=== PATIENT | female | born 1945 | race Caucasian/White ===

== ENCOUNTER 2016-10-17 23:39 | Inpatient (IN) | payer OTHER, MEDICARE ==
[~2016-10-17] VITALS: Ht 177.8 cm; Wt 113.0 kg
[~2016-10-17 23:39] MED LIST: ADULT LOW DOSE81 M1 PO; ALDOMET500 MG PO; ASPIRIN; Albuterol 0.5% Inhal IH; Apresoline PO; CARVEDILOL12.5 MG PO; CLEOCIN300 MG PO; CLOBETASOL PROP60 GM TP; CLOTRIMAZOLE10 MG; COREG12.5 M1 PO; COZAAR100 MG PO; COZAAR50 MG PO; CYMBALTA; CYMBALTA20 MG PO; CYMBALTA60 MG PO; DELTASONE20 M1 PO; DUONEB 2.5-0.5 M3 ML AEROSOL; ERGOCALCIF50000 UNIT PO; FELODIPINE ER10 MG PO; FENOFIBRATE54 M1 PO; FERROUS SULFAT325 MG PO; FISH OIL CONC1 EACH PO; FLAGYL500 MG PO; FLONASE16 G1 BOTH NARES; FOLIC ACID0.4 MG PO; FOLIC ACID1 MG PO; FUROSEMIDE20 MG PO; FUROSEMIDE40 MG PO; GLUCOPHAGE XR1000 MG PO; HUMALOG MI100 UNIT/1 SC; HUMALOG MI100 UNIT/3 SC; HUMALOG MI100 UNIT/3 SQ; HUMALOG MI100 UNIT/6 SQ; HUMALOG100 UNIT/2 SC; HUMALOG100 UNITS/ SQ; HUMULIN N100 UNIT/1; HUMULIN NP100 UNIT/1 SC; HYDROCHLOROTHIA25 MG PO; HYDROCORTISONE BUTYRATE 0.1% TP; HYDROXYCHLOROQ200 MG PO; IBUPROFEN200 M1 PO; IBUPROFEN800 MG PO; INDAPAMIDE; INDAPAMIDE2.5 MG PO; IPRATROPIU0.2 MG/1 M IH; K-DUR20 MEQ PO; KEPPRA XR500 MG PO; KEPPRA1000 MG PO; KEPPRA500 MG PO; KLOR-CON M2020 MEQ PO; LANTUS 3 M100 UNITS1 SC; LASIX20 MG PO; LEVAQUIN; LEVAQUIN500 MG PO; LEVAQUIN750 MG PO; LEVEMIR FL100 UNITS/ SC; LEVEMIR100 UNIT/2 SC; LEVEMIR100 UNIT/2 SQ; LIORESAL10 MG PO; LIPITOR; LIPITOR20 MG PO; LIPITOR40 MG PO; LO-DOSE ASPIRIN81 M1 PO; LOFIBRA54 MG PO; LOSARTAN POTAS100 MG PO; LOZOL2.5 MG PO; LYRICA; LYRICA100 MG PO; LYRICA200 MG PO; Levaquin PO; Levemir Flexpen SC; MACROBID100 MG PO; MACRODANTIN100 MG PO; MAGNESIUM250 MG PO; METFORMIN; METHADONE; METHOTREXATE; METHYLDOPA500 MG PO; METOCLOPRAMIDE H5 MG PO; METOCLOPRAMIDE PO; METRONIDAZOLE500 MG PO; MICRO-K,K-DUR,10 ME1 PO; MILK THISTLE500 MG PO; MONDOXYNE NL100 MG PO; MONTELUKAST SOD10 MG PO; MOTRIN800 MG PO; MUCINEX1200 MG PO; MUCINEX600 MG PO; MULTIVITAMIN1 EAC1 PO; Magnesium PO; Mycostatin TP; NEXIUM; NEXIUM40 MG PO; NITROFURANTOIN100 M3 PO; NITROFURANTOIN100 MG PO; NOVOLOG PE100 UNITS/ SC; NYAMYC60 GM TP; NovoLOG Pen 3 ml SC; OMEPRAZOLE40 M1 PO; ONDANSETRON HCL8 MG PO; OXYCONTIN20 MG PO; Omega III EPA + DHA PO; PLAVIX75 MG PO; PLENDIL10 MG PO; POTASSIUM CHLO10 ME3 PO; POTASSIUM CHLO20 MEQ PO; PREDNISONE10 MG PO; PREDNISONE20 MG PO; PRILOSEC40 MG PO; PROAIR; PROAIR HFA8.5 GM IH; PROMETHAZINE HC25 M1 PO; Potassium Chloride PO; Proventil,Ventolin H IH; SILVADENE,SSD,T20 GM TP; SILVADENE20 GM TP; SINGULAIR10 MG PO; SPIRIVA RESPIMAT4 G1 IH; SPIRIVA RESPIMAT4 GM IH; SPIRIVA1 INHALATI IH; ST. JOSEPH ASPI81 MG PO; SYMBICORT60 INHALAT IH; Spiriva IH; Symbicort 160-4.5 mc IH; TIGAN300 M1 PO; TRAMADOL HCL50 MG PO; ULTRAM50 MG PO; VENTOLIN HFA18 GM IH; VITAMIN D2000 INTUN PO; ZANTAC150 MG PO; ZOVIRAX800 M1 PO; ZYRTEC10 M2 PO; ZYRTEC10 M3 PO; ZyrTEC PO; Zyvox PO; [UNRECOGNIZED DRUG - OTHER]; [UNRECOGNIZED DRUG - OTHER]; predniSONE PO
[2016-10-18] VITALS (9 sets, daily range): BP systolic 130–145; BP diastolic 49–87
[2016-10-18 00:06] LABS: HEMATOCRIT 34.8 % (36.0-46.0); MCH 29.1 PG (29.0-34.0); MCHC 32.2 G/DL (30.0-36.0); MCV 90.4 FL (83-99); MEAN PLAT.VOLUME 9.5 uM^3 (9.5-12.4); PLATELET COUNT 267 K/uL (156-360); RBC DIS.WIDTH-CV 13.5 % (11.8-14.6); RBC DIS.WIDTH-SD 43.6 % (39-53); RED BLOOD COUNT 3.85 M/uL (3.80-5.20); WHITE BLOOD COUNT 19.8 K/uL (4.1-10.2)
[2016-10-18 00:09] LABS: EOSINOPHIL (%) 2.2 % (0-5); EOSINOPHIL COUNT 0.4 K/uL (0-0.3); IMMATURE GRANULOCYTE (%) 0.3 % (0.0-0.7); IMMATURE GRANULOCYTE COUNT 0.5 K/uL; LYMPHOCYTE COUNT 3.1 K/uL (1.0-2.8); MONOCYTE (%) 8.8 % (3-12); MONOCYTE COUNT 1.7 K/uL (0-0.8); NEUTROPHIL (%) 72.9 % (45-76); NEUTROPHIL COUNT 14.5 K/uL (1.8-6.4)
[2016-10-18 00:13] LABS: CHLORIDE 100 mEq/L (99-109); POTASSIUM 4.4 mEq/L (3.7-5.4); SODIUM 140 mEq/L (136-147)
[2016-10-18 00:15] LABS: GLUCOSE 198 mg/dL (70-99)
[2016-10-18 00:16] LABS: ANION GAP 11 MEQ/L (2-14)
[2016-10-18 00:17] LABS: TOTAL BILIRUBIN 0.5 mg/dL (0.0-1.0)
[2016-10-18 00:18] LABS: ALKALINE PHOSPHATASE 66 IU/L (3-129)
[2016-10-18 00:19] LABS: GFR ESTIMATE (CALCULATED) 43 mL/min/
[2016-10-18 00:20] LABS: UREA NITROGEN (BUN) 19 mg/dL (9-23)
[2016-10-18 00:26] LABS: TROP-I INTERPRETATION NEGATIVE; TROPONIN-I < 0.01 ng/mL (0.0-0.30)
[2016-10-18 00:27] LABS: BASE EXCESS 6.1 mEq/L (-3 to +3); BICARBONATE 32.5 mEq/L (22-26); CARBOXY HGB 2.7 % (0-5); COMMENTS - BLOOD GASES C+; DEVICE NC; METHEMOGLOBIN 1.2 % (0-1.5); O2 FLOW 5 L/MIN; PCO2 55 mm Hg (35-45); PO2 70 mm Hg (80-100); SITE LR; TOTAL RESP RATE 20 resp/min; pH 7.38 (7.35-7.45)
[2016-10-18] MEDS ORDERED: SPIRIVA1 INHALATI IH (01:26)
[2016-10-18] MEDS ORDERED: HYDROCHLOROTHIA25 MG PO (01:30)
[2016-10-18] MEDS ORDERED: FELODIPINE ER10 MG PO (01:30)
[2016-10-18] MEDS ORDERED: PROAIR HFA8.5 GM IH (01:30)
[2016-10-18] MEDS ORDERED: HUMALOG MI100 UNIT/1 SC ×3 (01:31→01:32)
[2016-10-18] MEDS ORDERED: METHYLDOPA500 MG PO (01:32)
[2016-10-18] MEDS ORDERED: FUROSEMIDE20 MG PO (01:32)
[2016-10-18] MEDS ORDERED: KLOR-CON M2020 MEQ PO (01:32)
[2016-10-18] MEDS ORDERED: CLOBETASOL PROP60 G1 TP (01:33)
[2016-10-18] MEDS ORDERED: SSD25GM TP (01:33)
[2016-10-18 07:01] LABS: BASE EXCESS 4.2 mEq/L (-3 to +3); BICARBONATE 30.2 mEq/L (22-26); CARBOXY HGB 2.6 % (0-5); COMMENTS - BLOOD GASES +C; DEVICE NC; METHEMOGLOBIN 1.3 % (0-1.5); O2 FLOW 5 L/MIN; PCO2 51 mm Hg (35-45); PO2 84 mm Hg (80-100); SITE RR +A; TOTAL RESP RATE 24 resp/min; pH 7.38 (7.35-7.45)
[2016-10-18 08:53] LABS: METH RESISTANT S AUREUS PCR POSITIVE (NEGATIVE)
[2016-10-18 09:11] LABS: PROBE CHECK PASS
[2016-10-18 10:17] LABS: POINT-OF-CARE METER ID UU14162636
[2016-10-18 12:09] LABS: POINT-OF-CARE METER ID UU13113731
[2016-10-18 12:31] LABS: EOSINOPHIL (%) 0.8 % (0-5); EOSINOPHIL COUNT 0.2 K/uL (0-0.3); HEMATOCRIT 29.5 % (36.0-46.0); IMMATURE GRANULOCYTE (%) 0.4 % (0.0-0.7); IMMATURE GRANULOCYTE COUNT 0.1 K/uL; LYMPHOCYTE COUNT 3.2 K/uL (1.0-2.8); MCH 29.1 PG (29.0-34.0); MCHC 32.2 G/DL (30.0-36.0); MCV 90.2 FL (83-99); MEAN PLAT.VOLUME 9.7 uM^3 (9.5-12.4); MONOCYTE (%) 7.9 % (3-12); MONOCYTE COUNT 1.5 K/uL (0-0.8); PLATELET COUNT 201 K/uL (156-360); RBC DIS.WIDTH-CV 13.9 % (11.8-14.6); RBC DIS.WIDTH-SD 45.8 % (39-53); RED BLOOD COUNT 3.27 M/uL (3.80-5.20); WHITE BLOOD COUNT 18.9 K/uL (4.1-10.2)
[2016-10-18 13:06] LABS: ANION GAP 9 MEQ/L (2-14); CHLORIDE 102 MEQ/L (99-109); GFR ESTIMATE (CALCULATED) > 59 mL/min/; GLUCOSE 288 mg/dL (70-99); POTASSIUM 4.1 MEQ/L (3.7-5.4); SAMPLE HEMOLYSIS CHECK 0; SAMPLE ICTERIC CHECK 0; SAMPLE LIPEMIA CHECK 0; SODIUM 139 MEQ/L (136-147); UREA NITROGEN (BUN) 17 mg/dL (9-23)
[2016-10-18 17:44] LABS: POINT-OF-CARE METER ID UU14162636
[2016-10-18 21:53] LABS: POINT-OF-CARE METER ID UU14162636; POINT-OF-CARE USER ID RADDRS44
[2016-10-19] VITALS (11 sets, daily range): BP systolic 106–151; BP diastolic 50–79
[2016-10-19 08:25] LABS: POINT-OF-CARE METER ID UU14162636
[2016-10-19 09:36] LABS: D-DIMER ELISA 1.19 mg/L FEU (< 0.57)
[2016-10-19 12:07] LABS: POINT-OF-CARE METER ID UU14162636
[2016-10-19 22:36] LABS: ADD MIUA? NO; BILIRUBIN NEGATIVE; BLOOD NEGATIVE; COLOR YELLOW ((YELLOW)); GLUCOSE (STRIP) >=1000; KETONES TRACE; LEUKOCYTES NEGATIVE; NITRITE NEGATIVE; PH, URINE 5.5 (5-8); PROTEIN (STRIP) NEGATIVE; SPECIFIC GRAVITY 1.035 (1.000-1.030); UCUL ADDED? NO
[2016-10-20] VITALS (7 sets, daily range): BP systolic 97–155; BP diastolic 54–92
[2016-10-20 04:21] LABS: POINT-OF-CARE METER ID UU14162636
[2016-10-20 06:53] LABS: EOSINOPHIL (%) 0 % (0-5); HEMATOCRIT 30.2 % (36.0-46.0); IMMATURE GRANULOCYTE (%) 0.5 % (0.0-0.7); IMMATURE GRANULOCYTE COUNT 0.1 K/uL; LYMPHOCYTE COUNT 0.8 K/uL (1.0-2.8); MCH 28.9 PG (29.0-34.0); MCHC 32.8 G/DL (30.0-36.0); MEAN PLAT.VOLUME 10.4 uM^3 (9.5-12.4); MONOCYTE (%) 1.9 % (3-12); MONOCYTE COUNT 0.2 K/uL (0-0.8); NEUTROPHIL (%) 90.8 % (45-76); NEUTROPHIL COUNT 10.1 K/uL (1.8-6.4); PLATELET COUNT 236 K/uL (156-360); RBC DIS.WIDTH-CV 13.2 % (11.8-14.6); RBC DIS.WIDTH-SD 42.3 % (39-53); RED BLOOD COUNT 3.43 M/uL (3.80-5.20)
[2016-10-20 06:55] LABS: WHITE BLOOD COUNT 11.2 K/uL (4.1-10.2)
[2016-10-20 06:58] LABS: ALKALINE PHOSPHATASE 54 IU/L (3-129); ANION GAP 8 MEQ/L (2-14); CHLORIDE 97 MEQ/L (99-109); GFR ESTIMATE (CALCULATED) > 59 mL/min/; GLUCOSE 324 mg/dL (70-99); POTASSIUM 4.1 MEQ/L (3.7-5.4); SAMPLE HEMOLYSIS CHECK 0; SAMPLE ICTERIC CHECK 0; SAMPLE LIPEMIA CHECK 0; SODIUM 137 MEQ/L (136-147); TOTAL BILIRUBIN 0.4 MG/DL (0.0-1.0); UREA NITROGEN (BUN) 22 mg/dL (9-23)
[2016-10-20 07:08] LABS: POINT-OF-CARE METER ID UU14162636
[2016-10-20 09:17] LABS: INTACT PARATHYROID HORMONE 30 pg/mL (10-69)
[2016-10-20 11:00] LABS: POINT-OF-CARE METER ID UU13113731
[2016-10-20 21:34] LABS: POINT-OF-CARE METER ID UU14162636
[2016-10-20 21:35] LABS: POINT-OF-CARE METER ID UU14162636
[2016-10-20 21:35] LABS: POINT-OF-CARE METER ID UU14162636; POINT-OF-CARE USER ID RADDRS44
[2016-10-21 07:27] VITALS: BP 135/76
[2016-10-21 07:38] LABS: EOSINOPHIL (%) 0 % (0-5); HEMATOCRIT 29.6 % (36.0-46.0); IMMATURE GRANULOCYTE (%) 0.7 % (0.0-0.7); IMMATURE GRANULOCYTE COUNT 0.1 K/uL; MCH 29.1 PG (29.0-34.0); MCHC 33.1 G/DL (30.0-36.0); MCV 87.8 FL (83-99); MEAN PLAT.VOLUME 10.5 uM^3 (9.5-12.4); MONOCYTE (%) 5.1 % (3-12); MONOCYTE COUNT 0.8 K/uL (0-0.8); NEUTROPHIL (%) 87.5 % (45-76); PLATELET COUNT 264 K/uL (156-360); RBC DIS.WIDTH-CV 13.2 % (11.8-14.6); RBC DIS.WIDTH-SD 42.3 % (39-53); RED BLOOD COUNT 3.37 M/uL (3.80-5.20)
[2016-10-21 07:41] LABS: WHITE BLOOD COUNT 14.9 K/uL (4.1-10.2)
[2016-10-21 07:48] LABS: ALKALINE PHOSPHATASE 53 IU/L (3-129); ANION GAP 7 MEQ/L (2-14); CHLORIDE 98 MEQ/L (99-109); GFR ESTIMATE (CALCULATED) > 59 mL/min/; GLUCOSE 221 mg/dL (70-99); POTASSIUM 4.1 MEQ/L (3.7-5.4); SAMPLE HEMOLYSIS CHECK 0; SAMPLE ICTERIC CHECK 0; SAMPLE LIPEMIA CHECK 0; SODIUM 137 MEQ/L (136-147); UREA NITROGEN (BUN) 32 mg/dL (9-23)
[2016-10-21 07:50] LABS: TOTAL BILIRUBIN 0.3 MG/DL (0.0-1.0)
[2016-10-21 08:09] LABS: INTERNAL CONTROL VALID? YES
[2016-10-21 16:24] VITALS: BP 123/63
[2016-10-21 23:26] VITALS: BP 109/69
[2016-10-22 07:34] VITALS: BP 148/68
[2016-10-22 14:59] VITALS: BP 139/64
[2016-10-23] VITALS: BP 155/66
[2016-10-23 07:44] VITALS: BP 138/70
[2016-10-23 15:15] VITALS: BP 127/69
[2016-10-24] VITALS: BP 131/72; BP 131/74
[2016-10-24 07:39] VITALS: BP 155/80
[2016-10-24 09:39] LABS: MCHC 32.3 G/DL (30.0-36.0); MCV 89.6 FL (83-99); MEAN PLAT.VOLUME 9.3 uM^3 (9.5-12.4); PLATELET COUNT 249 K/uL (156-360); RBC DIS.WIDTH-CV 13.8 % (11.8-14.6); RBC DIS.WIDTH-SD 44.4 % (39-53); RED BLOOD COUNT 3.35 M/uL (3.80-5.20); WHITE BLOOD COUNT 11.2 K/uL (4.1-10.2)
[2016-10-24 10:13] LABS: ANION GAP 9 MEQ/L (2-14); CHLORIDE 100 MEQ/L (99-109); GFR ESTIMATE (CALCULATED) > 59 mL/min/; GLUCOSE 170 mg/dL (70-99); POTASSIUM 3.5 MEQ/L (3.7-5.4); SAMPLE HEMOLYSIS CHECK 0; SAMPLE ICTERIC CHECK 0; SAMPLE LIPEMIA CHECK 0; SODIUM 140 MEQ/L (136-147); UREA NITROGEN (BUN) 15 mg/dL (9-23)
[2016-10-24 15:15] VITALS: BP 125/58
[2016-10-25 00:20] VITALS: BP 151/98
[2016-10-25 08:21] VITALS: BP 169/79
[2016-10-25 12:09] LABS: POINT-OF-CARE METER ID UU14188625; POINT-OF-CARE USER ID 611181312
[2016-10-25 16:03] VITALS: BP 120/61
[2016-10-25 16:19] LABS: POINT-OF-CARE METER ID UU14174225
[2016-10-25 16:48] LABS: ANION GAP 6 MEQ/L (2-14); CHLORIDE 97 MEQ/L (99-109); GFR ESTIMATE (CALCULATED) > 59 mL/min/; GLUCOSE 239 mg/dL (70-99); POTASSIUM 4.7 MEQ/L (3.7-5.4); SAMPLE HEMOLYSIS CHECK 0; SAMPLE ICTERIC CHECK 0; SAMPLE LIPEMIA CHECK 0; SODIUM 139 MEQ/L (136-147); UREA NITROGEN (BUN) 15 mg/dL (9-23)
[2016-10-25 21:41] LABS: POINT-OF-CARE METER ID UU14174225
[2016-10-25 23:28] VITALS: BP 150/74
[2016-10-26 07:30] VITALS: BP 152/72
[2016-10-26 13:23] LABS: POINT-OF-CARE METER ID UU14188625
[2016-10-26 16:00] VITALS: BP 137/64
[2016-10-26 17:35] LABS: POINT-OF-CARE METER ID UU14174225
[2016-10-26 20:41] LABS: POINT-OF-CARE METER ID UU14188625
[2016-10-27 00:36] VITALS: BP 123/70
[2016-10-27 08:34] VITALS: BP 138/82
[2016-10-27] MEDS ORDERED: PREDNISONE10 MG PO (10:30)
[2016-10-27] MEDS ORDERED: HUMALOG MI100 UNIT/1 SC ×3 (10:30)
[2016-10-27] MEDS ORDERED: LEVAQUIN750 MG PO (10:42)
[2016-10-27] MEDS ORDERED: LINEZOLID600 MG PO (10:42)
== END 2016-10-27 13:20 | disposition home health service (06) | DRG 871 ==
LOC: EME 23:39 → 4WEST 10-18 04:52 → 5SOUTH 10-18 04:52 → EDOF 10-18 04:52 → 4WEST 10-18 07:23 → 5SOUTH 10-20 12:44
PROVIDERS: Emergency Medicine; Family Medicine; Hospitalist; Internal Medicine; Physician Assistant
DX: A41.9 Sepsis, unspecified organism (principal); J18.9 Pneumonia, unspecified organism; J96.21 Acute and chronic respiratory failure with hypoxia; J44.0 Chronic obstructive pulmonary disease with (acute) lower respiratory infection; J96.22 Acute and chronic respiratory failure with hypercapnia; G93.41 Metabolic encephalopathy; J44.1 Chronic obstructive pulmonary disease with (acute) exacerbation; E83.52 Hypercalcemia; B37.3 Candidiasis of vulva and vagina; I10 Essential (primary) hypertension; E11.9 Type 2 diabetes mellitus without complications; E78.5 Hyperlipidemia, unspecified; G47.33 Obstructive sleep apnea (adult) (pediatric); J84.10 Pulmonary fibrosis, unspecified; G40.909 Epilepsy, unspecified, not intractable, without status epilepticus; K21.9 Gastro-esophageal reflux disease without esophagitis; G89.29 Other chronic pain; M06.9 Rheumatoid arthritis, unspecified; I73.9 Peripheral vascular disease, unspecified; F32.9 Major depressive disorder, single episode, unspecified; E66.01 Morbid (severe) obesity due to excess calories; Y95 Nosocomial condition; Z66 Do not resuscitate; Z68.35 Body mass index [BMI] 35.0-35.9, adult; Z99.81 Dependence on supplemental oxygen; Z79.02 Long term (current) use of antithrombotics/antiplatelets; Z79.82 Long term (current) use of aspirin; Z79.4 Long term (current) use of insulin; Z88.1 Allergy status to other antibiotic agents; Z88.2 Allergy status to sulfonamides; Z87.891 Personal history of nicotine dependence; Z22.322 Carrier or suspected carrier of Methicillin resistant Staphylococcus aureus
CPT/HCPCS: 36600; 70450; 71010; 71020; 71275; 80048; 80048 91; 80053; 80202; 81003; 82803; 82948; 83605; 83880; 83970; 84484; 85025; 85025 91; 85027; 85379; 87040; 87070; 87205; 87449; 87641; 93005; 93970; 94010; 94640; 94640 76; 94760; 94799; 97530 GO; 97530 GP; 99202; 99281; 99285; J0692; J1644; J1815; J1885; J1956; J2920; J2930; J3370; J7030; J7050; J7512

== ENCOUNTER 2017-05-29 19:35 | Emergency (ER) | payer OTHER, MEDICARE ==
[~2017-05-29] VITALS: Ht 170.2 cm; Wt 121.0 kg
[~2017-05-29 19:35] MED LIST changes: +CLOBETASOL PROP60 G1 TP; +LINEZOLID600 MG PO; +SSD25GM TP
[2017-05-29 20:10] LABS: HEMATOCRIT 31.9 % (36.0-46.0); MCH 28.7 PG (29.0-34.0); MCHC 31.7 G/DL (30.0-36.0); MCV 90.6 FL (83-99); MEAN PLAT.VOLUME 9.4 uM^3 (9.5-12.4); PLATELET COUNT 146 K/uL (156-360); RBC DIS.WIDTH-CV 13.9 % (11.8-14.6); RBC DIS.WIDTH-SD 45.9 % (39-53); RED BLOOD COUNT 3.52 M/uL (3.80-5.20); WHITE BLOOD COUNT 8.7 K/uL (4.1-10.2)
[2017-05-29 20:16] LABS: PROTHROMBIN TIME 11.4 SEC (10.2-12.9)
[2017-05-29 20:19] LABS: PTT 28.3 SEC (25-37)
[2017-05-29 20:20] LABS: CHLORIDE 98 mEq/L (99-109); POTASSIUM 4.6 mEq/L (3.7-5.4); SODIUM 140 mEq/L (136-147)
[2017-05-29 20:22] LABS: GLUCOSE 317 mg/dL (70-99)
[2017-05-29 20:23] LABS: ANION GAP 10 MEQ/L (2-14)
[2017-05-29 20:26] LABS: GFR ESTIMATE (CALCULATED) > 59 mL/min/
[2017-05-29 20:27] LABS: UREA NITROGEN (BUN) 16 mg/dL (9-23)
[2017-05-29 20:32] LABS: TROP-I INTERPRETATION NEGATIVE; TROPONIN-I < 0.01 ng/mL (0.0-0.30)
[2017-05-29 23:41] VITALS: BP 171/79
== END 2017-05-29 23:42 | disposition home or self-care (01) ==
LOC: EME → EDBD 19:35 → EME 23:42
PROVIDERS: Emergency Medicine
DX: J06.9 Acute upper respiratory infection, unspecified (principal); J84.10 Pulmonary fibrosis, unspecified; J44.9 Chronic obstructive pulmonary disease, unspecified; M79.89 Other specified soft tissue disorders; I10 Essential (primary) hypertension; E78.5 Hyperlipidemia, unspecified; Z90.49 Acquired absence of other specified parts of digestive tract; Z79.02 Long term (current) use of antithrombotics/antiplatelets; Z79.82 Long term (current) use of aspirin; Z87.891 Personal history of nicotine dependence
CPT/HCPCS: 71020; 80048; 84484; 85027; 85610; 85730; 93005; 99281; 99285

== ENCOUNTER 2017-06-22 08:15 | Inpatient (IN) | payer OTHER, MEDICARE ==
[~2017-06-22] VITALS: Ht 170.2 cm; Wt 110.4 kg
[2017-06-22 09:11] LABS: EOSINOPHIL (%) 0 % (0-5); HEMATOCRIT 36.4 % (36.0-46.0); IMMATURE GRANULOCYTE (%) 0.4 % (0.0-0.7); IMMATURE GRANULOCYTE COUNT 0.1 K/uL; INSTRUMENT ABS NEUTROPHIL CT 10.8 K/uL; LYMPHOCYTE COUNT 1.5 K/uL (1.0-2.8); MCH 28.3 PG (29.0-34.0); MCHC 33.2 G/DL (30.0-36.0); MEAN PLAT.VOLUME 9.4 uM^3 (9.5-12.4); MONOCYTE (%) 6.1 % (3-12); MONOCYTE COUNT 0.8 K/uL (0-0.8); NEUTROPHIL (%) 81.8 % (45-76); NEUTROPHIL COUNT 10.8 K/uL (1.8-6.4); RBC DIS.WIDTH-CV 13.9 % (11.8-14.6); RBC DIS.WIDTH-SD 42.7 % (39-53); WHITE BLOOD COUNT 13.2 K/uL (4.1-10.2)
[2017-06-22 09:18] LABS: ADD MIUA? YES; BILIRUBIN NEGATIVE; BLOOD NEGATIVE; COLOR YELLOW ((YELLOW)); GLUCOSE (STRIP) >=500; KETONES 20; LEUKOCYTES SMALL; NITRITE POSITIVE; PROTEIN (STRIP) NEGATIVE; UROBILINOGEN 0.2 MG/DL (0.2-1.0)
[2017-06-22 09:25] LABS: CHLORIDE 93 mEq/L (99-109)
[2017-06-22 09:25] LABS: BACTERIA RARE /HPF; EPITHELIAL CELLS RARE /HPF; HYALINE CASTS 0-5 /LPF; MUCUS NONE SEEN /LPF; RED BLOOD CELLS 0-5 /HPF (0-5); UCUL ADDED? YES; WHITE BLOOD CELLS 20-30 /HPF (0-5)
[2017-06-22 09:26] LABS: MCV 85.2 FL (83-99); PLATELET COUNT 240 K/uL (156-360); POTASSIUM 3.6 mEq/L (3.7-5.4); RED BLOOD COUNT 4.27 M/uL (3.80-5.20); SODIUM 138 mEq/L (136-147)
[2017-06-22 09:28] LABS: GLUCOSE 350 mg/dL (70-99)
[2017-06-22 09:29] LABS: ANION GAP 12 MEQ/L (2-14); TROP-I INTERPRETATION NEGATIVE; TROPONIN-I 0.01 ng/mL (0.0-0.30)
[2017-06-22 09:30] LABS: TOTAL BILIRUBIN 0.6 mg/dL (0.0-1.0)
[2017-06-22 09:31] LABS: ALKALINE PHOSPHATASE 86 IU/L (3-129); GFR ESTIMATE (CALCULATED) 43 mL/min/
[2017-06-22 09:33] LABS: UREA NITROGEN (BUN) 24 mg/dL (9-23)
[2017-06-22] MEDS ORDERED: HUMALOG MI100 UNIT/1 SC ×2 (11:26→11:27)
[2017-06-22] MEDS ORDERED: NITROFURANTOIN100 MG PO (11:36)
[2017-06-22 12:06] LABS: BASE EXCESS 11.1 mEq/L (-3 to +3); BICARBONATE 36.4 mEq/L (22-26); CARBOXY HGB 2.1 % (0-5); COMMENTS - BLOOD GASES C+A+; DEVICE NC; METHEMOGLOBIN 1.1 % (0-1.5); O2 FLOW 2.5 L/MIN; PCO2 50 mm Hg (35-45); PO2 67 mm Hg (80-100); SITE RR; TOTAL RESP RATE 20 resp/min; pH 7.47 (7.35-7.45)
[2017-06-22 13:56] LABS: POINT-OF-CARE METER ID UU13113747
[2017-06-22 15:37] LABS: POINT-OF-CARE METER ID UU13113774
[2017-06-22 16:17] VITALS: BP 139/70
[2017-06-22 20:31] VITALS: BP 157/70
[2017-06-22 22:48] LABS: POINT-OF-CARE METER ID UU13113774
[2017-06-23 06:16] LABS: POINT-OF-CARE METER ID UU13113725; POINT-OF-CARE USER ID 611181321
[2017-06-23 06:55] LABS: ANION GAP 13 MEQ/L (2-14); CHLORIDE 99 MEQ/L (99-109); GFR ESTIMATE (CALCULATED) > 59 mL/min/; GLUCOSE 376 mg/dL (70-99); POTASSIUM 3.7 MEQ/L (3.7-5.4); SAMPLE HEMOLYSIS CHECK 0; SAMPLE ICTERIC CHECK 0; SAMPLE LIPEMIA CHECK 0; SODIUM 144 MEQ/L (136-147); UREA NITROGEN (BUN) 24 mg/dL (9-23)
[2017-06-23 07:37] VITALS: BP 135/65
[2017-06-23 11:11] LABS: POINT-OF-CARE METER ID UU13113725
[2017-06-23 11:27] VITALS: BP 135/60
[2017-06-23] MEDS ORDERED: HUMALOG MI100 UNIT/1 SC (14:53)
[2017-06-23 16:07] LABS: POINT-OF-CARE METER ID UU13113774
[2017-06-23 16:18] VITALS: BP 90/54
[2017-06-23 20:25] VITALS: BP 106/53
[2017-06-23 22:11] LABS: POINT-OF-CARE METER ID UU13113774
[2017-06-24 06:00] LABS: POINT-OF-CARE METER ID UU13113774
[2017-06-24 06:39] VITALS: BP 113/54
[2017-06-24 06:59] LABS: EOSINOPHIL (%) 4.7 % (0-5); EOSINOPHIL COUNT 0.5 K/uL (0-0.3); HEMATOCRIT 32.8 % (36.0-46.0); IMMATURE GRANULOCYTE (%) 0.3 % (0.0-0.7); INSTRUMENT ABS NEUTROPHIL CT 5.4 K/uL; LYMPHOCYTE COUNT 3.1 K/uL (1.0-2.8); MCH 28.2 PG (29.0-34.0); MCHC 31.7 G/DL (30.0-36.0); MCV 88.9 FL (83-99); MEAN PLAT.VOLUME 9.7 uM^3 (9.5-12.4); MONOCYTE (%) 7.1 % (3-12); MONOCYTE COUNT 0.7 K/uL (0-0.8); NEUTROPHIL (%) 55.8 % (45-76); NEUTROPHIL COUNT 5.4 K/uL (1.8-6.4); PLATELET COUNT 177 K/uL (156-360); RBC DIS.WIDTH-CV 14.4 % (11.8-14.6); RBC DIS.WIDTH-SD 46.2 % (39-53); RED BLOOD COUNT 3.69 M/uL (3.80-5.20); WHITE BLOOD COUNT 9.7 K/uL (4.1-10.2)
[2017-06-24 07:32] LABS: ANION GAP 7 MEQ/L (2-14); CHLORIDE 97 MEQ/L (99-109); GFR ESTIMATE (CALCULATED) > 59 mL/min/; GLUCOSE 234 mg/dL (70-99); POTASSIUM 3.5 MEQ/L (3.7-5.4); SAMPLE HEMOLYSIS CHECK 0; SAMPLE ICTERIC CHECK 0; SAMPLE LIPEMIA CHECK 0; UREA NITROGEN (BUN) 28 mg/dL (9-23)
[2017-06-24 07:33] LABS: SODIUM 135 MEQ/L (136-147)
[2017-06-24 10:55] VITALS: BP 143/66
[2017-06-24 11:37] LABS: POINT-OF-CARE METER ID UU13113774
[2017-06-24 14:52] VITALS: BP 108/55
[2017-06-24 15:31] VITALS: BP 140/68
[2017-06-24 16:18] LABS: POINT-OF-CARE METER ID UU13113774
[2017-06-24 18:03] LABS: POINT-OF-CARE METER ID UU13113774
[2017-06-24 21:06] VITALS: BP 114/57
[2017-06-24 22:11] LABS: POINT-OF-CARE METER ID UU13113774
[2017-06-24 23:50] VITALS: BP 128/60
[2017-06-25 06:25] LABS: EOSINOPHIL (%) 4.9 % (0-5); EOSINOPHIL COUNT 0.5 K/uL (0-0.3); HEMATOCRIT 31.6 % (36.0-46.0); IMMATURE GRANULOCYTE (%) 0.4 % (0.0-0.7); LYMPHOCYTE COUNT 1.9 K/uL (1.0-2.8); MCH 28.5 PG (29.0-34.0); MCHC 32.6 G/DL (30.0-36.0); MCV 87.5 FL (83-99); MONOCYTE (%) 7.3 % (3-12); MONOCYTE COUNT 0.7 K/uL (0-0.8); NEUTROPHIL (%) 68.5 % (45-76); PLATELET COUNT 164 K/uL (156-360); RBC DIS.WIDTH-CV 14.1 % (11.8-14.6); RBC DIS.WIDTH-SD 45.1 % (39-53); RED BLOOD COUNT 3.61 M/uL (3.80-5.20); WHITE BLOOD COUNT 10.2 K/uL (4.1-10.2)
[2017-06-25 06:52] LABS: ALKALINE PHOSPHATASE 67 IU/L (3-129); ANION GAP 6 MEQ/L (2-14); CHLORIDE 97 MEQ/L (99-109); GFR ESTIMATE (CALCULATED) > 59 mL/min/; GLUCOSE 274 mg/dL (70-99); POTASSIUM 3.9 MEQ/L (3.7-5.4); SAMPLE HEMOLYSIS CHECK 0; SAMPLE ICTERIC CHECK 0; SAMPLE LIPEMIA CHECK 0; SODIUM 133 MEQ/L (136-147); TOTAL BILIRUBIN 0.4 MG/DL (0.0-1.0); UREA NITROGEN (BUN) 21 mg/dL (9-23)
[2017-06-25 06:54] VITALS: BP 157/70
[2017-06-25 07:07] LABS: POINT-OF-CARE METER ID UU13113725
[2017-06-25] MEDS ORDERED: ADVAIR HFA120 INHALA IH (09:34)
[2017-06-25] MEDS ORDERED: CEFTIN500 MG PO (09:34)
[2017-07-01 12:18] LABS: POINT-OF-CARE METER ID UU13113774
== END 2017-06-25 13:51 | disposition home or self-care (01) | DRG 189 ==
LOC: EME → EDBD 08:15 → EDOF 11:24 → ENRESERV 11:25 → CANRESERV 11:52 → 5EAST 12:09 → EDOF 12:09 → ENRESERV 12:15 → 5EAST 14:01 → ENPENDDIS 06-25 → 5EAST 06-25 13:51
PROVIDERS: Emergency Medicine; Hospitalist; Student in an Organized Health Care Education/Training Program
DX: J96.21 Acute and chronic respiratory failure with hypoxia (principal); N39.0 Urinary tract infection, site not specified; J44.1 Chronic obstructive pulmonary disease with (acute) exacerbation; J96.22 Acute and chronic respiratory failure with hypercapnia; I11.0 Hypertensive heart disease with heart failure; G93.41 Metabolic encephalopathy; I50.32 Chronic diastolic (congestive) heart failure; E66.01 Morbid (severe) obesity due to excess calories; Z99.81 Dependence on supplemental oxygen; E11.65 Type 2 diabetes mellitus with hyperglycemia; E03.9 Hypothyroidism, unspecified; E78.5 Hyperlipidemia, unspecified; J84.10 Pulmonary fibrosis, unspecified; B96.1 Klebsiella pneumoniae [K. pneumoniae] as the cause of diseases classified elsewhere; M06.9 Rheumatoid arthritis, unspecified; E86.0 Dehydration; E83.52 Hypercalcemia; E87.6 Hypokalemia; K21.9 Gastro-esophageal reflux disease without esophagitis; Z79.4 Long term (current) use of insulin; Z68.38 Body mass index [BMI] 38.0-38.9, adult; Z87.440 Personal history of urinary (tract) infections; Z87.891 Personal history of nicotine dependence
CPT/HCPCS: 36600; 70450; 71010; 80048; 80053; 81003; 82803; 82948; 83605; 84484; 85025; 87077; 87086; 87186; 93005; 94640; 94640 76; 94799; 99202; 99281; 99285; J0696; J1650; J1815; J3480; J7030; J7050

== ENCOUNTER 2017-07-17 21:53 | Inpatient (IN) | payer OTHER, MEDICARE ==
[~2017-07-17] VITALS: Ht 175.3 cm; Wt 114.1 kg
[~2017-07-17 21:53] MED LIST changes: +ADVAIR HFA120 INHALA IH; +CEFTIN500 MG PO
[2017-07-17 22:28] LABS: BASE EXCESS 14.4 mEq/L (-3 to +3); BICARBONATE 41.2 mEq/L (22-26); CARBOXY HGB 3.1 % (0-5); METHEMOGLOBIN 1.1 % (0-1.5); pH 7.43 (7.35-7.45)
[2017-07-17 22:29] LABS: COMMENTS - BLOOD GASES LR; DEVICE AEROSOL FACEMASK; O2 FLOW 8 L/MIN; PCO2 62 mm Hg (35-45); PO2 87 mm Hg (80-100); SITE A+C+; TOTAL RESP RATE 20 resp/min
[2017-07-17 22:48] LABS: EOSINOPHIL (%) 1.2 % (0-5); EOSINOPHIL COUNT 0.1 K/uL (0-0.3); HEMATOCRIT 35.8 % (36.0-46.0); IMMATURE GRANULOCYTE (%) 0.8 % (0.0-0.7); IMMATURE GRANULOCYTE COUNT 0.1 K/uL; INSTRUMENT ABS NEUTROPHIL CT 8.1 K/uL; LYMPHOCYTE COUNT 2.8 K/uL (1.0-2.8); MCH 28.7 PG (29.0-34.0); MCHC 32.1 G/DL (30.0-36.0); MCV 89.3 FL (83-99); MEAN PLAT.VOLUME 9.4 uM^3 (9.5-12.4); MONOCYTE (%) 6.4 % (3-12); MONOCYTE COUNT 0.8 K/uL (0-0.8); NEUTROPHIL COUNT 8.1 K/uL (1.8-6.4); PLATELET COUNT 211 K/uL (156-360); RBC DIS.WIDTH-SD 45.2 % (39-53); RED BLOOD COUNT 4.01 M/uL (3.80-5.20)
[2017-07-17 22:56] LABS: CHLORIDE 91 mEq/L (99-109); POTASSIUM 3.7 mEq/L (3.7-5.4); SODIUM 139 mEq/L (136-147)
[2017-07-17 22:58] LABS: GLUCOSE 195 mg/dL (70-99)
[2017-07-17 22:59] LABS: ANION GAP 12 MEQ/L (2-14)
[2017-07-17 23:00] LABS: TOTAL BILIRUBIN 0.9 mg/dL (0.0-1.0)
[2017-07-17 23:01] LABS: ALKALINE PHOSPHATASE 88 IU/L (3-129)
[2017-07-17 23:02] LABS: GFR ESTIMATE (CALCULATED) > 59 mL/min/
[2017-07-17 23:03] LABS: UREA NITROGEN (BUN) 14 mg/dL (9-23)
[2017-07-17 23:07] LABS: TROP-I INTERPRETATION NEGATIVE; TROPONIN-I < 0.01 ng/mL (0.0-0.30)
[2017-07-18] MEDS ORDERED: LYRICA200 MG PO (00:24)
[2017-07-18] MEDS ORDERED: HYDROCHLOROTHIA25 MG PO (00:24)
[2017-07-18 03:37] VITALS: BP 163/77
[2017-07-18 04:00] VITALS: BP 157/69
[2017-07-18 04:46] LABS: METH RESISTANT S AUREUS PCR POSITIVE (NEGATIVE)
[2017-07-18 04:55] LABS: PROBE CHECK PASS
[2017-07-18 06:24] LABS: GLOBULINS 2.8 G/DL (2.3-3.5)
[2017-07-18 08:24] LABS: ANION GAP 11 MEQ/L (2-14); CHLORIDE 88 MEQ/L (99-109); POTASSIUM 3.9 MEQ/L (3.7-5.4); SAMPLE HEMOLYSIS CHECK 0; SAMPLE ICTERIC CHECK 0; SAMPLE LIPEMIA CHECK 0; SODIUM 134 MEQ/L (136-147)
[2017-07-18 08:29] LABS: GFR ESTIMATE (CALCULATED) > 59 mL/min/; UREA NITROGEN (BUN) 15 mg/dL (9-23)
[2017-07-18 08:35] LABS: GLUCOSE 301 mg/dL (70-99)
[2017-07-18 09:48] LABS: POINT-OF-CARE METER ID UU14208751
[2017-07-18 09:53] LABS: HEMATOCRIT 35.3 % (36.0-46.0); MCH 28.6 PG (29.0-34.0); MCHC 32.3 G/DL (30.0-36.0); MCV 88.7 FL (83-99); MEAN PLAT.VOLUME 9.6 uM^3 (9.5-12.4); PLATELET COUNT 196 K/uL (156-360); RBC DIS.WIDTH-CV 14.1 % (11.8-14.6); RBC DIS.WIDTH-SD 45.2 % (39-53); RED BLOOD COUNT 3.98 M/uL (3.80-5.20); WHITE BLOOD COUNT 9.3 K/uL (4.1-10.2)
[2017-07-18 09:54] LABS: INTACT PARATHYROID HORMONE 48 pg/mL (10-69)
[2017-07-18 11:02] VITALS: BP 170/96
[2017-07-18 12:00] VITALS: BP 153/66
[2017-07-18 12:20] LABS: GLUCOSE 497 mg/dL (70-99)
[2017-07-18 16:00] VITALS: BP 174/96
[2017-07-18 16:48] LABS: POINT-OF-CARE METER ID UU14314082
[2017-07-18 20:00] VITALS: BP 157/71
[2017-07-18 21:58] LABS: POINT-OF-CARE METER ID UU14174217; POINT-OF-CARE USER ID RADDRS44
[2017-07-19] VITALS (8 sets, daily range): BP systolic 100–208; BP diastolic 51–112
[2017-07-19 05:37] LABS: HEMATOCRIT 34.4 % (36.0-46.0); MCH 28.6 PG (29.0-34.0); MCHC 32.6 G/DL (30.0-36.0); MEAN PLAT.VOLUME 9.9 uM^3 (9.5-12.4); PLATELET COUNT 247 K/uL (156-360); RBC DIS.WIDTH-CV 14.3 % (11.8-14.6); RBC DIS.WIDTH-SD 45.2 % (39-53); RED BLOOD COUNT 3.91 M/uL (3.80-5.20); WHITE BLOOD COUNT 15.5 K/uL (4.1-10.2)
[2017-07-19 06:04] LABS: ANION GAP 9 MEQ/L (2-14); CHLORIDE 95 MEQ/L (99-109); GFR ESTIMATE (CALCULATED) > 59 mL/min/; GLUCOSE 289 mg/dL (70-99); SAMPLE HEMOLYSIS CHECK 0; SAMPLE ICTERIC CHECK 0; SAMPLE LIPEMIA CHECK 0; SODIUM 138 MEQ/L (136-147)
[2017-07-19 06:09] LABS: UREA NITROGEN (BUN) 23 mg/dL (9-23)
[2017-07-19 09:00] LABS: POINT-OF-CARE METER ID UU14208751
[2017-07-19 09:21] LABS: URINE TOTAL PROTEIN 18 MG/DL (0-10)
[2017-07-19 17:29] LABS: POINT-OF-CARE METER ID UU14162636
[2017-07-19 23:26] LABS: POINT-OF-CARE METER ID UU13113725; POINT-OF-CARE USER ID AHSUCEG
[2017-07-20] VITALS (7 sets, daily range): BP systolic 103–140; BP diastolic 55–85
[2017-07-20 05:52] LABS: POINT-OF-CARE METER ID UU13113774
[2017-07-20 09:28] LABS: POINT-OF-CARE METER ID UU13113725
[2017-07-20 12:18] LABS: POINT-OF-CARE METER ID UU13113725
[2017-07-20 13:48] LABS: POINT-OF-CARE METER ID UU13113725
[2017-07-20 18:31] LABS: POINT-OF-CARE METER ID UU13113725
[2017-07-20 20:13] LABS: POINT-OF-CARE METER ID UU14162636
[2017-07-20 20:42] LABS: POINT-OF-CARE METER ID UU14208751
[2017-07-20 22:43] LABS: POINT-OF-CARE METER ID UU13113774; POINT-OF-CARE USER ID AHSUCEG
[2017-07-21 04:10] VITALS: BP 116/57
[2017-07-21 05:55] LABS: POINT-OF-CARE METER ID UU13113725
[2017-07-21 06:04] LABS: HEMATOCRIT 30.9 % (36.0-46.0); MCH 28.7 PG (29.0-34.0); MCHC 31.7 G/DL (30.0-36.0); MCV 90.4 FL (83-99); MEAN PLAT.VOLUME 9.9 uM^3 (9.5-12.4); PLATELET COUNT 225 K/uL (156-360); RBC DIS.WIDTH-SD 48.6 % (39-53); RED BLOOD COUNT 3.42 M/uL (3.80-5.20)
[2017-07-21 06:31] LABS: ANION GAP 8 MEQ/L (2-14); CHLORIDE 100 MEQ/L (99-109); GFR ESTIMATE (CALCULATED) 43 mL/min/; POTASSIUM 4.5 MEQ/L (3.7-5.4); SAMPLE HEMOLYSIS CHECK 0; SAMPLE ICTERIC CHECK 0; SAMPLE LIPEMIA CHECK 0; SODIUM 139 MEQ/L (136-147)
[2017-07-21 06:33] LABS: GLUCOSE 67 mg/dL (70-99); UREA NITROGEN (BUN) 59 mg/dL (9-23)
[2017-07-21 06:55] VITALS: BP 126/57
[2017-07-21] MEDS ORDERED: DOXYCYCLINE HY100 M3 PO (09:35)
[2017-07-21] MEDS ORDERED: PREDNISONE20 MG PO (09:36)
[2017-07-21] MEDS ORDERED: CEFTIN500 MG PO (09:38)
[2017-07-21 09:40] LABS: POINT-OF-CARE METER ID UU13113725
[2017-07-21 10:35] LABS: POINT-OF-CARE METER ID UU13113774; POINT-OF-CARE USER ID AHSUCEG
[2017-07-21 12:34] LABS: POINT-OF-CARE METER ID UU13113725
[2017-07-21 12:43] LABS: POINT-OF-CARE METER ID UU13113725
[2017-07-21 15:31] LABS: ALBUMIN 3.43 G/DL (3.6-4.9); ALBUMIN PERCENT 51.2 % (49.3-67.1); ALPHA-1 GLOBULIN 0.38 G/DL (0.15-0.40); ALPHA-1 PERCENT 5.6 % (2.1-5.5); ALPHA-2 GLOBULIN 0.86 G/DL (0.45-0.85); ALPHA-2 PERCENT 12.8 % (6.2-11.6); BETA PERCENT 17.4 % (8.9-15.8)
[2017-07-21 16:43] LABS: POINT-OF-CARE METER ID UU13113725
== END 2017-07-21 14:10 | disposition home health service (06) | DRG 189 ==
LOC: EME 21:53 → 4WEST 07-18 00:34 → EDOF 07-18 00:34 → CANRESERV 07-18 00:38 → ENRESERV 07-18 00:38 → 4WEST 07-18 03:27 → ENRESERV 07-19 15:28 → 4WEST 07-19 15:29 → ENRESERV 07-19 16:13 → 5EAST 07-19 18:13 → ENPENDDIS 07-21 → 5EAST 07-21 14:10
PROVIDERS: Emergency Medicine; Hospitalist; Internal Medicine
DX: J96.22 Acute and chronic respiratory failure with hypercapnia (principal); J44.1 Chronic obstructive pulmonary disease with (acute) exacerbation; G93.41 Metabolic encephalopathy; J96.21 Acute and chronic respiratory failure with hypoxia; J44.0 Chronic obstructive pulmonary disease with (acute) lower respiratory infection; J18.9 Pneumonia, unspecified organism; E11.00 Type 2 diabetes mellitus with hyperosmolarity without nonketotic hyperglycemic-hyperosmolar coma (NKHHC); I11.0 Hypertensive heart disease with heart failure; I50.30 Unspecified diastolic (congestive) heart failure; E87.2 Acidosis; I27.81 Cor pulmonale (chronic); G47.33 Obstructive sleep apnea (adult) (pediatric); Z99.81 Dependence on supplemental oxygen; J84.10 Pulmonary fibrosis, unspecified; E11.65 Type 2 diabetes mellitus with hyperglycemia; G40.909 Epilepsy, unspecified, not intractable, without status epilepticus; E83.52 Hypercalcemia; T50.2X5A Adverse effect of carbonic-anhydrase inhibitors, benzothiadiazides and other diuretics, initial encounter; R26.2 Difficulty in walking, not elsewhere classified; R00.0 Tachycardia, unspecified; E66.01 Morbid (severe) obesity due to excess calories; Z68.37 Body mass index [BMI] 37.0-37.9, adult; K22.70 Barrett's esophagus without dysplasia; K21.9 Gastro-esophageal reflux disease without esophagitis; Z66 Do not resuscitate; E78.5 Hyperlipidemia, unspecified; F09 Unspecified mental disorder due to known physiological condition; F32.9 Major depressive disorder, single episode, unspecified; Z79.4 Long term (current) use of insulin; Z79.82 Long term (current) use of aspirin; Z79.02 Long term (current) use of antithrombotics/antiplatelets; Z90.49 Acquired absence of other specified parts of digestive tract; Z89.421 Acquired absence of other right toe(s); Z87.891 Personal history of nicotine dependence
CPT/HCPCS: 36600; 70450; 71010; 80048; 80048 91; 80053; 82803; 82948; 83605; 83880; 83970; 84165; 84166; 84484; 84999; 85025; 85027; 87040; 87641; 93005; 93306; 94640; 94640 76; 94799; 97530 GO; 97530 GP; 99202; 99281; 99285; J0295; J0696; J1650; J1815; J1956; J2930; J7030; J7050; J7512

== ENCOUNTER 2017-08-06 16:21 | Inpatient (IN) | payer OTHER, MEDICARE ==
[~2017-08-06] VITALS: Ht 170.2 cm; Wt 115.0 kg
[~2017-08-06 16:21] MED LIST changes: +DOXYCYCLINE HY100 M3 PO
[2017-08-06 17:45] LABS: VENOUS PCO2 81 mm Hg (41-51)
[2017-08-06 17:48] LABS: CARBON DIOXIDE (BICARBONATE) > 40.0 MEQ/L (20-31)
[2017-08-06 17:52] LABS: CHLORIDE 96 mEq/L (99-109); POTASSIUM 4.3 mEq/L (3.7-5.4); SODIUM 137 mEq/L (136-147)
[2017-08-06 17:56] LABS: ANION GAP 8 MEQ/L (2-14)
[2017-08-06 17:57] LABS: TOTAL BILIRUBIN 0.3 mg/dL (0.0-1.0)
[2017-08-06 17:58] LABS: ALKALINE PHOSPHATASE 69 IU/L (3-129); GFR ESTIMATE (CALCULATED) 52 mL/min/; GLUCOSE 554 mg/dL (70-99)
[2017-08-06 17:59] LABS: HEMATOCRIT 29.7 % (36.0-46.0); MCH 29.3 PG (29.0-34.0); MCV 91.7 FL (83-99); RBC DIS.WIDTH-SD 47.2 % (39-53); RED BLOOD COUNT 3.24 M/uL (3.80-5.20); UREA NITROGEN (BUN) 25 mg/dL (9-23); WHITE BLOOD COUNT 7.9 K/uL (4.1-10.2)
[2017-08-06 18:00] LABS: ADD MIUA? YES; BILIRUBIN NEGATIVE; BLOOD NEGATIVE; COLOR STRAW ((YELLOW)); GLUCOSE (STRIP) >=500; KETONES NEGATIVE; LEUKOCYTES TRACE; NITRITE NEGATIVE; PROTEIN (STRIP) NEGATIVE; SPECIFIC GRAVITY 1.015 (1.000-1.030); UROBILINOGEN 0.2 MG/DL (0.2-1.0)
[2017-08-06 18:07] LABS: BACTERIA RARE /HPF; EPITHELIAL CELLS RARE /HPF; MUCUS NONE SEEN /LPF; RED BLOOD CELLS 0-5 /HPF (0-5); UCUL ADDED? NO; WHITE BLOOD CELLS 0-5 /HPF (0-5)
[2017-08-06 18:19] LABS: BASE EXCESS 11.8 mEq/L (-3 to +3); BICARBONATE 40.2 mEq/L (22-26); CARBOXY HGB 2.5 % (0-5); COMMENTS - BLOOD GASES C+; DEVICE NC; METHEMOGLOBIN 0.8 % (0-1.5); O2 FLOW 4 L/MIN; PCO2 78 mm Hg (35-45); PO2 73 mm Hg (80-100); SITE RB; TOTAL RESP RATE 16 resp/min; pH 7.32 (7.35-7.45)
[2017-08-06 18:25] LABS: MEAN PLAT.VOLUME 10.1 uM^3 (9.5-12.4); PLAT.SUFFICIENCY DECREASED; PLATELET COUNT 148 K/uL (156-360)
[2017-08-06] MEDS ORDERED: HALOBETASOL PRO15 G1 TP (20:27)
[2017-08-06] MEDS ORDERED: HYDROCORTISONE30 G2 TP (20:27)
[2017-08-06] MEDS ORDERED: HYDROCHLOROTHIA25 MG PO (20:29)
[2017-08-06 20:50] LABS: POINT-OF-CARE METER ID UU14100415
[2017-08-06 22:45] VITALS: BP 147/83
[2017-08-06 22:51] VITALS: BP 147/77
[2017-08-06 23:00] VITALS: BP 144/67
[2017-08-06 23:15] VITALS: BP 151/68
[2017-08-06 23:30] VITALS: BP 160/73
[2017-08-07] VITALS (23 sets, daily range): BP systolic 119–186; BP diastolic 52–113
[2017-08-07 00:01] LABS: METH RESISTANT S AUREUS PCR NEGATIVE (NEGATIVE)
[2017-08-07 00:06] LABS: PROBE CHECK PASS; SPECIMEN PROCESSING CONTROL PASS
[2017-08-07 05:44] LABS: POINT-OF-CARE METER ID UU13113731
[2017-08-07 12:46] LABS: POINT-OF-CARE METER ID UU14208751
[2017-08-07 14:20] LABS: POINT-OF-CARE METER ID UU14100415
[2017-08-07 14:20] LABS: POINT-OF-CARE METER ID UU14100415
[2017-08-07 14:20] LABS: POINT-OF-CARE METER ID UU14314083
[2017-08-08 03:59] VITALS: BP 160/60
[2017-08-08 07:30] VITALS: BP 165/74
[2017-08-08 09:17] LABS: BASE EXCESS 4.7 mEq/L (-3 to +3); CARBOXY HGB 2.2 % (0-5); METHEMOGLOBIN 1.6 % (0-1.5); PO2 64 mm Hg (80-100)
[2017-08-08 09:18] LABS: BICARBONATE 29.2 mEq/L (22-26); COMMENTS - BLOOD GASES +C; DEVICE NC; O2 FLOW 6 L/MIN; PCO2 42 mm Hg (35-45); SITE RR +A; TOTAL RESP RATE 24 resp/min; pH 7.45 (7.35-7.45)
[2017-08-08 09:31] LABS: HEMATOCRIT 34.9 % (36.0-46.0); MCH 28.8 PG (29.0-34.0); MCHC 32.4 G/DL (30.0-36.0); MEAN PLAT.VOLUME 9.7 uM^3 (9.5-12.4); RBC DIS.WIDTH-CV 14.3 % (11.8-14.6); RBC DIS.WIDTH-SD 46.1 % (39-53)
[2017-08-08 09:39] LABS: PLATELET COUNT 251 K/uL (156-360); RED BLOOD COUNT 3.92 M/uL (3.80-5.20)
[2017-08-08 11:37] LABS: ANION GAP 20 MEQ/L (2-14); CHLORIDE 99 MEQ/L (99-109); GFR ESTIMATE (CALCULATED) > 59 mL/min/; GLUCOSE 469 mg/dL (70-99); POTASSIUM 3.7 MEQ/L (3.7-5.4); SAMPLE HEMOLYSIS CHECK 0; SAMPLE ICTERIC CHECK 0; SAMPLE LIPEMIA CHECK 0; SODIUM 145 MEQ/L (136-147); UREA NITROGEN (BUN) 25 mg/dL (9-23)
[2017-08-08 11:54] LABS: POINT-OF-CARE METER ID UU14188625
[2017-08-08 11:59] VITALS: BP 162/77
[2017-08-08 16:00] VITALS: BP 150/74
[2017-08-08 16:45] LABS: POINT-OF-CARE METER ID UU13113717
[2017-08-08 19:45] VITALS: BP 146/70
[2017-08-08 20:58] LABS: POINT-OF-CARE METER ID UU14188625
[2017-08-08 23:50] VITALS: BP 153/77
[2017-08-09 04:07] VITALS: BP 157/86
[2017-08-09 06:37] LABS: HEMATOCRIT 35.5 % (36.0-46.0); MCH 28.4 PG (29.0-34.0); MCHC 31.8 G/DL (30.0-36.0); MCV 89.2 FL (83-99); MEAN PLAT.VOLUME 9.3 uM^3 (9.5-12.4); PLATELET COUNT 199 K/uL (156-360); RBC DIS.WIDTH-CV 14.2 % (11.8-14.6); RBC DIS.WIDTH-SD 46.1 % (39-53); RED BLOOD COUNT 3.98 M/uL (3.80-5.20); WHITE BLOOD COUNT 13.5 K/uL (4.1-10.2)
[2017-08-09 06:51] VITALS: BP 184/83
[2017-08-09 07:10] LABS: POINT-OF-CARE METER ID UU13113717
[2017-08-09 07:51] LABS: ANION GAP 12 MEQ/L (2-14); CHLORIDE 98 MEQ/L (99-109); GFR ESTIMATE (CALCULATED) 58 mL/min/; GLUCOSE 303 mg/dL (70-99); POTASSIUM 3.9 MEQ/L (3.7-5.4); SAMPLE HEMOLYSIS CHECK 0; SAMPLE ICTERIC CHECK 0; SAMPLE LIPEMIA CHECK 0; SODIUM 143 MEQ/L (136-147); UREA NITROGEN (BUN) 27 mg/dL (9-23)
[2017-08-09 11:12] LABS: POINT-OF-CARE METER ID UU13113717
[2017-08-09 11:15] VITALS: BP 167/86
[2017-08-09 15:13] VITALS: BP 173/84
[2017-08-09 16:30] LABS: POINT-OF-CARE METER ID UU14188625
[2017-08-09 22:06] LABS: POINT-OF-CARE METER ID UU14174225
[2017-08-09 23:29] LABS: POINT-OF-CARE METER ID UU14174225
[2017-08-10 00:02] VITALS: BP 137/66
[2017-08-10 06:55] VITALS: BP 158/81
[2017-08-10 07:15] LABS: POINT-OF-CARE METER ID UU14188625
[2017-08-10 09:15] LABS: EOSINOPHIL (%) 0.1 % (0-5); HEMATOCRIT 39.2 % (36.0-46.0); IMMATURE GRANULOCYTE (%) 0.4 % (0.0-0.7); IMMATURE GRANULOCYTE COUNT 0.1 K/uL; INSTRUMENT ABS NEUTROPHIL CT 10.9 K/uL; LYMPHOCYTE COUNT 2.1 K/uL (1.0-2.8); MCHC 32.4 G/DL (30.0-36.0); MCV 89.5 FL (83-99); MEAN PLAT.VOLUME 9.3 uM^3 (9.5-12.4); MONOCYTE (%) 7.1 % (3-12); NEUTROPHIL (%) 77.2 % (45-76); NEUTROPHIL COUNT 10.9 K/uL (1.8-6.4); PLATELET COUNT 223 K/uL (156-360); RBC DIS.WIDTH-CV 13.9 % (11.8-14.6); RBC DIS.WIDTH-SD 45.4 % (39-53); RED BLOOD COUNT 4.38 M/uL (3.80-5.20); WHITE BLOOD COUNT 14.2 K/uL (4.1-10.2)
[2017-08-10 09:44] LABS: ALKALINE PHOSPHATASE 70 IU/L (3-129); ANION GAP 8 MEQ/L (2-14); CHLORIDE 98 MEQ/L (99-109); GFR ESTIMATE (CALCULATED) > 59 mL/min/; POTASSIUM 3.9 MEQ/L (3.7-5.4); SAMPLE HEMOLYSIS CHECK 0; SAMPLE ICTERIC CHECK 0; SAMPLE LIPEMIA CHECK 0; SODIUM 143 MEQ/L (136-147); TOTAL BILIRUBIN 0.5 MG/DL (0.0-1.0); UREA NITROGEN (BUN) 22 mg/dL (9-23)
[2017-08-10 09:45] LABS: GLUCOSE 142 mg/dL (70-99)
[2017-08-10 11:12] LABS: POINT-OF-CARE METER ID UU14188625
[2017-08-10 15:14] VITALS: BP 151/74
[2017-08-10 16:36] LABS: POINT-OF-CARE METER ID UU14174225
[2017-08-10 17:37] LABS: POINT-OF-CARE METER ID UU13113717
[2017-08-10 18:48] LABS: POINT-OF-CARE METER ID UU14174225
[2017-08-10 21:13] LABS: POINT-OF-CARE METER ID UU13113717
[2017-08-10 21:16] LABS: POINT-OF-CARE METER ID UU14174225
[2017-08-10 21:26] LABS: POINT-OF-CARE METER ID UU13113717
[2017-08-10 21:41] LABS: POINT-OF-CARE METER ID UU14188625
[2017-08-10 21:50] LABS: POINT-OF-CARE METER ID UU14314082
[2017-08-10 23:39] VITALS: BP 146/81
[2017-08-11 07:04] LABS: EOSINOPHIL (%) 1.3 % (0-5); EOSINOPHIL COUNT 0.2 K/uL (0-0.3); HEMATOCRIT 36.3 % (36.0-46.0); IMMATURE GRANULOCYTE (%) 0.5 % (0.0-0.7); IMMATURE GRANULOCYTE COUNT 0.1 K/uL; INSTRUMENT ABS NEUTROPHIL CT 11.7 K/uL; LYMPHOCYTE COUNT 3.2 K/uL (1.0-2.8); MCH 28.6 PG (29.0-34.0); MCHC 32.2 G/DL (30.0-36.0); MCV 88.8 FL (83-99); MEAN PLAT.VOLUME 9.2 uM^3 (9.5-12.4); MONOCYTE (%) 7.3 % (3-12); MONOCYTE COUNT 1.2 K/uL (0-0.8); NEUTROPHIL (%) 71.5 % (45-76); NEUTROPHIL COUNT 11.7 K/uL (1.8-6.4); PLATELET COUNT 203 K/uL (156-360); RBC DIS.WIDTH-CV 13.8 % (11.8-14.6); RBC DIS.WIDTH-SD 44.4 % (39-53); RED BLOOD COUNT 4.09 M/uL (3.80-5.20); WHITE BLOOD COUNT 16.4 K/uL (4.1-10.2)
[2017-08-11 07:23] LABS: ANION GAP 7 MEQ/L (2-14); CHLORIDE 94 MEQ/L (99-109); GFR ESTIMATE (CALCULATED) 58 mL/min/; GLUCOSE 123 mg/dL (70-99); POTASSIUM 3.5 MEQ/L (3.7-5.4); SAMPLE HEMOLYSIS CHECK 0; SAMPLE ICTERIC CHECK 0; SAMPLE LIPEMIA CHECK 0; SODIUM 137 MEQ/L (136-147); UREA NITROGEN (BUN) 23 mg/dL (9-23)
[2017-08-11 07:32] LABS: POINT-OF-CARE METER ID UU14174225
[2017-08-11 07:47] VITALS: BP 163/79
[2017-08-11 10:43] LABS: INTACT PARATHYROID HORMONE 106 pg/mL (10-69)
[2017-08-11 12:29] LABS: POINT-OF-CARE METER ID UU14188625
[2017-08-11 16:20] VITALS: BP 96/48
[2017-08-11 17:39] LABS: POINT-OF-CARE METER ID UU14174225
[2017-08-11 18:27] LABS: POINT-OF-CARE METER ID UU13113717
[2017-08-11 21:10] LABS: POINT-OF-CARE METER ID UU13113717
[2017-08-12 00:04] VITALS: BP 120/58
[2017-08-12 06:20] LABS: POINT-OF-CARE METER ID UU13113717
[2017-08-12 07:53] VITALS: BP 128/60
[2017-08-12 08:08] LABS: POINT-OF-CARE METER ID UU14174225
[2017-08-12 08:22] LABS: POINT-OF-CARE METER ID UU13113717
[2017-08-12 08:51] LABS: EOSINOPHIL (%) 4.1 % (0-5); EOSINOPHIL COUNT 0.5 K/uL (0-0.3); HEMATOCRIT 33.4 % (36.0-46.0); IMMATURE GRANULOCYTE (%) 0.6 % (0.0-0.7); IMMATURE GRANULOCYTE COUNT 0.1 K/uL; INSTRUMENT ABS NEUTROPHIL CT 6.8 K/uL; MCH 28.8 PG (29.0-34.0); MEAN PLAT.VOLUME 9.5 uM^3 (9.5-12.4); MONOCYTE (%) 6.4 % (3-12); MONOCYTE COUNT 0.8 K/uL (0-0.8); NEUTROPHIL COUNT 6.8 K/uL (1.8-6.4); PLATELET COUNT 223 K/uL (156-360); RBC DIS.WIDTH-CV 14.3 % (11.8-14.6); RBC DIS.WIDTH-SD 46.6 % (39-53); RED BLOOD COUNT 3.71 M/uL (3.80-5.20); WHITE BLOOD COUNT 12.1 K/uL (4.1-10.2)
[2017-08-12 09:00] LABS: ANION GAP 6 MEQ/L (2-14); CHLORIDE 95 MEQ/L (99-109); GFR ESTIMATE (CALCULATED) 47 mL/min/; GLUCOSE 100 mg/dL (70-99); SODIUM 134 MEQ/L (136-147)
[2017-08-12 09:01] LABS: POTASSIUM 4.3 MEQ/L (3.7-5.4); UREA NITROGEN (BUN) 35 mg/dL (9-23)
[2017-08-12 11:24] LABS: POINT-OF-CARE METER ID UU13113717
[2017-08-12] MEDS ORDERED: LEVOFLOXACIN750 MG PO (11:34)
[2017-08-12 13:59] LABS: POINT-OF-CARE METER ID UU13113717
[2017-08-12 16:03] VITALS: BP 116/59
[2017-08-12 17:02] LABS: POINT-OF-CARE METER ID UU14174225
[2017-08-12 21:41] LABS: POINT-OF-CARE METER ID UU14174225
[2017-08-13 00:34] VITALS: BP 119/55
[2017-08-13 04:02] VITALS: BP 105/54
[2017-08-13 07:42] LABS: POINT-OF-CARE METER ID UU13113717
[2017-08-13 08:23] VITALS: BP 150/76
[2017-08-13 08:50] LABS: HEMATOCRIT 31.7 % (36.0-46.0); MCH 29.6 PG (29.0-34.0); MCHC 33.1 G/DL (30.0-36.0); MCV 89.3 FL (83-99); MEAN PLAT.VOLUME 9.3 uM^3 (9.5-12.4); PLATELET COUNT 226 K/uL (156-360); RBC DIS.WIDTH-CV 14.3 % (11.8-14.6); RBC DIS.WIDTH-SD 45.8 % (39-53); RED BLOOD COUNT 3.55 M/uL (3.80-5.20); WHITE BLOOD COUNT 11.4 K/uL (4.1-10.2)
[2017-08-13 11:58] VITALS: BP 145/66
[2017-08-13 17:23] LABS: POINT-OF-CARE METER ID UU13113717
[2017-08-13 20:10] LABS: POINT-OF-CARE METER ID UU14174225
[2017-08-13 20:35] VITALS: BP 136/81
[2017-08-14] VITALS (7 sets, daily range): BP systolic 110–156; BP diastolic 53–85
[2017-08-14 09:23] LABS: POINT-OF-CARE METER ID UU13113717
[2017-08-14 09:23] LABS: POINT-OF-CARE METER ID UU13113717
[2017-08-14 10:18] LABS: POINT-OF-CARE METER ID UU14174225
[2017-08-14 10:18] LABS: POINT-OF-CARE METER ID UU13113717
[2017-08-14] MEDS ORDERED: LEVEMIR FL100 UNIT/1 SC (10:45)
[2017-08-14 12:39] LABS: POINT-OF-CARE METER ID UU13113717
[2017-08-14 16:55] LABS: POINT-OF-CARE METER ID UU13113717
[2017-08-14 21:11] LABS: POINT-OF-CARE METER ID UU13113717
[2017-08-15 04:29] VITALS: BP 126/59
[2017-08-15 07:35] VITALS: BP 120/60
[2017-08-15 08:20] LABS: POINT-OF-CARE METER ID UU14174225
[2017-08-15 12:37] LABS: POINT-OF-CARE METER ID UU14174225
[2017-08-15] MEDS ORDERED: DIFLUCAN150 MG PO (13:25)
== END 2017-08-15 13:45 | disposition home health service (06) | DRG 189 ==
LOC: EME 16:21 → ENRESERV 19:56 → 5SOUTH 19:56 → 4WEST 19:56 → EDOF 19:56 → ENRESERV 21:07 → 4WEST 22:34 → ENRESERV 08-07 19:53 → 5SOUTH 08-07 21:21
PROVIDERS: Emergency Medicine; Hospitalist; Internal Medicine; Internal Medicine Critical Care Medicine; Physician Assistant Medical
PROC: 5A09357 Assistance with Respiratory Ventilation, Less than 24 Consecutive Hours, Continuous Positive Airway Pressure (ICD-10-PCS; principal; 2017-08-06)
DX: J96.21 Acute and chronic respiratory failure with hypoxia (principal); J96.22 Acute and chronic respiratory failure with hypercapnia; J44.1 Chronic obstructive pulmonary disease with (acute) exacerbation; E11.00 Type 2 diabetes mellitus with hyperosmolarity without nonketotic hyperglycemic-hyperosmolar coma (NKHHC); E11.65 Type 2 diabetes mellitus with hyperglycemia; E11.649 Type 2 diabetes mellitus with hypoglycemia without coma; J15.6 Pneumonia due to other Gram-negative bacteria; J44.0 Chronic obstructive pulmonary disease with (acute) lower respiratory infection; Z99.81 Dependence on supplemental oxygen; J84.10 Pulmonary fibrosis, unspecified; G93.41 Metabolic encephalopathy; E87.3 Alkalosis; E83.52 Hypercalcemia; E66.01 Morbid (severe) obesity due to excess calories; Z68.41 Body mass index [BMI] 40.0-44.9, adult; D72.829 Elevated white blood cell count, unspecified; T38.0X5A Adverse effect of glucocorticoids and synthetic analogues, initial encounter; I27.81 Cor pulmonale (chronic); Z66 Do not resuscitate; I10 Essential (primary) hypertension; K22.70 Barrett's esophagus without dysplasia; G40.909 Epilepsy, unspecified, not intractable, without status epilepticus; E78.5 Hyperlipidemia, unspecified; F03.90 Unspecified dementia, unspecified severity, without behavioral disturbance, psychotic disturbance, mood disturbance, and anxiety; F05 Delirium due to known physiological condition; G89.29 Other chronic pain; K21.9 Gastro-esophageal reflux disease without esophagitis; D64.9 Anemia, unspecified; Z86.14 Personal history of Methicillin resistant Staphylococcus aureus infection; G43.909 Migraine, unspecified, not intractable, without status migrainosus; F32.9 Major depressive disorder, single episode, unspecified; F41.9 Anxiety disorder, unspecified; Z79.4 Long term (current) use of insulin; Z91.11 Patient's noncompliance with dietary regimen; Z91.14 Patient's other noncompliance with medication regimen; Z87.891 Personal history of nicotine dependence; Z89.411 Acquired absence of right great toe; Z89.421 Acquired absence of other right toe(s)
CPT/HCPCS: 36600; 70450; 71010; 71020; 71275; 80048; 80053; 81003; 82803; 82948; 83605; 83970; 84100; 85025; 85027; 87040; 87077; 87086; 87186; 87641; 90686; 93005; 94002; 94003; 94640; 94640 76; 94799; 97530 GO; 97530 GP; 99202; 99281; 99285; J0692; J0696; J1335; J1650; J1815; J2405; J2920; J2930; J7030; J7050; J7512